=== PATIENT | female | born 1990 | race Caucasian/White ===

== ENCOUNTER 2025-05-13 10:34 | Outpatient (AMB) | payer BC, SELFPAY ==
[2025-05-13 10:36] VITALS: BP 107/60; PULSE 69; BMI 22.8
--- NOTE | 2025-05-13 10:36 | MHC.OFFVIS ---
Vital Signs 05/13/25 10:36 05/13/25 10:50 05/13/25 10:53 Height 5 ft 8 in Weight 149 lb 14.629 oz BMI 22.8 BP 107/60 102/69 109/68 Blood Pressure Location Lt brachial Lt brachial Lt brachial Position Supine Sitting Standing Pulse 69 78 94 Intake Visit Reasons: new patient syncope Intake Note: New patient dx syncope with ekg per patient passed out once a few months ago felt like could pass out 2 other times Allergies No Known Allergies Allergy (Verified 05/13/25 10:41) Medication List - Last Reconciled 05/13/25 by Zack Olguin MD bupropion HCl XL 300 mg PO DAILY sertraline 100 mg PO DAILY HPI Comments Details: Thank you for referring Nayana in cardiology consultation today for management and evaluation of syncope. She is a 35-year-old female who recently had a syncopal episode. She said she had no unusual illnesses prior to this episode and was doing well on that day adequately hydrating and doing her usual routine. She then went for dinner with her and had irregular monitor food. Following that she went to a local club and she is standing and playing game and then suddenly started feeling weird and felt lightheaded. She continued to have symptoms and told her that she is not feeling well and she said down the ground. She continued to not feel well and then she decided to go home and she stood up to pay her tab and then next thing she knows that she had fainted. She said overall total loss of consciousness lasted less than 10 seconds. However she took about 3 minutes to gather all her senses. She had no seizure-like activities as witnessed. She was noted to be pale. No clear diaphoresis although she thinks she might have had cold sweats. She had no chest pain or shortness of breath or fast heart rate. Symptoms resolved and she has not had any recurrent symptoms of syncope since then. She had 2 episodes of near-syncope while at home while sitting down and playing video game. No full loss of consciousness but her at that time also noted that she was pale. She has strong family history in her grandfather, father as well as her aunt of having dysautonomia. She prior to this has not had any diagnose. She is currently on high dose bupropion and sertraline for anxiety/depression. She says she needs this medications. She says she drinks adequate amount of fluids in the day. She denies any exertional chest pain or shortness of breath. No prolonged palpitations. [facility] Medical History Syncope Surgical History Hx of tonsillectomy Family History Father No problems noted. Mother No problems noted. Social History Patient Tobacco Use Status: Never used Tobacco Review of Systems Const Denies chills, Denies daytime sleepiness, Denies fatigue, Denies fever(s), Denies frequent falls, Denies poor appetite, Denies snoring, Denies stops breathing during sleep, Denies weakness, Denies weight gain and Denies weight loss Eyes Denies loss of vision ENT Denies dizziness and Denies hearing loss Card Denies chest pain, Denies claudication, Denies leg edema, Denies lightheadedness, Denies palpitations, Denies dyspnea, Denies dyspnea on exertion and Denies orthopnea Resp Denies cough, Denies excessive phlegm production, Denies dyspnea, Denies dyspnea on exertion, Denies snoring and Denies wheezing GI Denies abdominal pain, Denies hematochezia, Denies change in bowel habits, Denies nausea and Denies vomiting Denies urinary frequency and Denies dysuria Musc Denies arthralgias, Denies muscle weakness, Denies numbness and Denies other (frequent falls) Skin/Breast Denies nail changes and Denies rash Neuro Denies Abnormal speech present, Denies dizziness, Denies frequent falls, Denies loss of vision, Denies memory loss, Denies numbness and Denies weakness Psych Denies depression and Denies memory loss Endo Denies fatigue and Denies palpitations Reginald/Lymph Reports easy bruising and Reports other (anemia) Aller/Immun Denies wheezing Physical Exam Vital Signs: Last Vital Signs Pulse 94 05/13/25 10:53 BP 109/68 05/13/25 10:53 BMI result Body Mass Index 22.8 Const General: cooperative, comfortable, no acute distress, well developed, alert, awake and Physically active Nutritional Appearance: average body habitus Orientation/consciousness: patient oriented x3 Limitations: no limitations HEENT Head: Yes normocephalic and Yes atraumatic Neck Neck: Yes trachea midline, Yes supple and Yes no JVD Resp Effort & Inspection: normal respiratory effort Auscultation: clear to auscultation bilaterally Cardio Jugular venous distension: no JVD Palpation: normal PMI Rate: regular rate Rhythm: regular rhythm Heart sounds: S1 normal heart sound present, S2 normal heart sound present, no click, no gallops and no murmurs GI Auscultation: normal bowel sounds Skin General skin exam: no rashes or lesions noted Neuro General: patient oriented x3 and no focal motor deficits Speech: No Abnormal speech present Extrem General: Yes no clubbing, cyanosis or edema Psych Appearance: grossly normal Office Procedures EKG Details: EKG shows normal sinus rhythm normal EKG [id number], Complete Assessment & Plan Assessment & Plan (1) Syncope: Code(s): R55 - Syncope and collapse Category: Medical Plan: Syncopal episode in this young woman with couple of near syncopal episode with strong family history of dysautonomia. Today on physical exam she does have mi orthostatic tachycardia. She has no symptoms recently. I think she probably also has dysautonomia syndrome potentially worsened by her psychoactive medications which can exacerbate orthostatic symptoms. This was discussed with her. However she says that she needs these medicines. We discussed about mechanism of dysautonomia related syncopal episodes. Would like further workup with a head-up tilt-table test and will repeat a Holter monitor to rule out any arrhythmias although less likely an echocardiogram to evaluate for any structural abnormalities. Discussed with her about the same. We discussed about primary treatment with and asked water and salt intake and mechanism of orthostatic/vasovagal syncope was discussed in details. Further treatment based on the test results. We discussed about orthostatic precautions and advise when she gets these symptoms she has to seek supine or sitting position to avert a syncopal episode and avoid injuries. He understands agrees. We discussed about increasing her aerobic activity mostly supine or sitting exercises. She understands agrees. Will follow up in the clinic in 3 months time, sooner p.r.n.. Thank you for allowing me to partake in her care Orders: Orders ECG 7 day holter monitor Today R55 - Syncope and collapse CA echo transthoracic complete Today R55 - Syncope and collapse ECG Tilt Table Test Today R55 - Syncope and collapse Coding Level of Care Code New Pt Level 4 (70977) Complex EM visit Add On G2211 Diagnoses Syncope R55 CPT Codes EKG - CPT: 56678-[id number], Complete ([id number])
[2025-05-13 10:50] VITALS: BP 102/69; PULSE 78
[2025-05-13 10:53] VITALS: BP 109/68; PULSE 94
== END 2025-05-13 11:18 | disposition home or self-care (01) ==
PROVIDERS: PCP Internal Medicine; Visit Provider Internal Medicine Cardiovascular Disease
DX: R55 Syncope and collapse (principal)
CPT/HCPCS: 93010; 99204

== ENCOUNTER → 2025-05-13 10:34 | Outpatient (BNVA) | payer OTHER, SELFPAY | PROVIDERS: PCP Internal Medicine; Visit Provider Internal Medicine Cardiovascular Disease | DX: R55 Syncope and collapse (principal) | CPT/HCPCS: 93005 ==

== ENCOUNTER → 2025-07-02 12:50 | Outpatient (REF) | payer BC, SELFPAY ==
--- OUTSIDE RECORDS SUMMARY | 2025-07-02 12:53 | XMS_ITS | Clinical Summary ---
Author Organization [facility] Address [address] [place] [address] Phone Care Team Providers Care Regional Transfer Liaison Name Role Phone Teresa Adorno MD Primary Care Provider [phone] Social History Tobacco Use Types Packs/Day Years Used Date Smoking Tobacco: Never Assessed Comments Unknown Sex and Gender Information Value Date Recorded Sex Assigned at Not on file Legal Sex Female 1:15 AM EST Gender Identity Not on file Sexual Orientation Not on file Plan of Treatment Upcoming Encounters Date Type Department Care Team (Late st Contact Info) Description 08/24/2025 1:00 PM EDT Appointment [facility] Xray [address] [place] [address] Health Maintenance Due Date Last Done Comments DTaP,Tdap,and Td Vaccines (1 - Tdap) 2011 Hepatitis B Vaccines (1 of 3 - 19+ 3-dose series) 2011 Cervical Cancer Screening: P ap Smear 2013 COVID-19 Vaccine ( - 2023-2 5 season) 2024 Depression Screening 11/25/2024 HIV Screening 05/18/2025 Hepatitis C Screening 05/18/2025 Social Influencers of Health Screening 05/18/2025 Influenza Vaccine (#1) 2025 HIB Vaccines Aged Out No longer eligi ble based on patient's age to complete this topic HPV Vaccines Aged Out No longer eligi ble based on patient's age to complete this topic Hepatitis A Vaccines Aged Out No long er eligible based on patient's age to complete this topic IPV Vaccines Aged Out No longer eligi ble based on patient's age to complete this topic MMR Vaccines Aged Out No longer eligi ble based on patient's age to complete this topic Meningococcal ACWY Vaccine Aged Out N o longer eligible based on patient's age to complete this topic Meningococcal B Vaccine Aged Out No l onger eligible based on patient's age to complete this topic Pneumococcal Vaccine: Pediat rics (0 to 5 Years) and At-Risk Patients (6 to 49 Years) Aged Out No longer eligible b ased on patient's age to complete this topic RSV Immunization Patients Un bandar 20 months Aged Out No longer eligible b ased on patient's age to complete this topic Varicella Vaccines Aged Out No longer eligible based on patient's age to complete this topic Insurance Care Teams Regional Transfer Liaison Relationship Specialty Start Date End Date Teresa Adorno MD PCP - General Internal Medicine 04/02/18
--- NOTE | 2025-07-02 12:57 | CA_ITS ---
Transthoracic Echocardiogram Patient (Last, First, Middle): Nayana Torrez, Gender: Female Date of : 1990 Age: 35 Procedure Date: 07/02/2025 Procedure Type: Transthoracic Echocardiogram Location: OP Height: 172.72 cm Weight: 74.84 kg BSA: 1.88 m2 Heart Rate: bpm BP: 108 / 70 mmHg Cheese Specialist: TO Referring MD: Zack Olguin MD Symptoms: R55 - Syncope and collapse Study Quality: Adequate ECG Rhythm: Sinus Conclusions: - The left ventricular systolic function is normal. The calculated ejection fraction is 58% by biplane method. - No obvious valvular pathology seen on this study. Findings Left Ventricle Normal left ventricular cavity size. There is normal left ventricular wall thickness. The left ventricular systolic function is normal. The calculated ejection fraction is 58% by biplane method. There is no evidence of regional wall motion abnormalities. Diastolic function is normal for age. LV peak GLS -25.1%. Right Ventricle Normal right ventricular cavity size and systolic function. Atria Both atria are normal in size. Aortic Valve There is a normal trileaflet aortic valve. There is no aortic valve stenosis. There is no aortic valve regurgitation. Mitral Valve The mitral valve appears normal. There is trace mitral valve regurgitation. There is no mitral valve stenosis. Pulmonic Valve The pulmonic valve is likely normal. Tricuspid Valve There is trace tricuspid valve regurgitation. There is no evidence of pulmonary hypertension. Great Vessels The asc aorta is normal in size. Venous The inferior vena cava is normal in size and collapses less than 50% with inspiration. Pericardium/Pleural There is no evidence of pericardial effusion. Prior Study Comparison No prior study available for comparison. Recommendations, Care & Conclusions No obvious valvular pathology seen on this study. Measurements 2D Linear Measurements IVSd: 0.69 0.6-0.9/0.6-1.0 cm LVIDd: 4.53 3.9-5.3/4.2-5.9 cm LVIDd Index: 2.41 2.4-3.2/2.2-3.1 cm/m2 LVIDs: 2.92 2.0-3.6 cm LVPWd: 0.70 0.7-1.1 cm LA Diam: 3.40 2.7-3.8/3.0-4.0 cm LAIDs Index: 1.81 1.5-2.3 cm/m2 LV Mass: 119.10 67-162/88-224 g LV Mass Index: 63.35 43-95/49-115 g/m2 LVOT Diam: 2.20 3.0+(-)1.3 cm 2D Systolic Function EF 4C: 58.90 >55% EF 2C: 58.40 >55% EF BiP: 57.50 >55% Mitral Valve MV Pk E: 0.70 MV PK A: 0.41 MV Decel Time: 219.00 E/A: 1.70 E'Lateral: 14.50 E'Medial: 9.36 E/E' Med: 7.40 E/E' Lat: 4.80 PHT: 64.00 MVA PHT: 3.44 Decel Al[place]gan: 3.18 Aortic Valve AoV Pk Willis: 1.45 AoV Mn Willis: 0.98 AoV VTI: 0.29 AoV Pk Grad: 8.00 Aov Mn Grad: 4.00 NONA Cont.VTI: 3.11 LVOT LVOT Pk Willis: 1.20 LVOT Mn Willis: 0.75 LVOT VTI: 0.23 LVOT Pk Grad: 6.00 LVOT Mn Grad: 3.00 LVOT Diam: 2.20 LVOT Area: 3.80 Diastolic Function MV Pk E: 0.70 MV Pk A: 0.41 E/A: 1.70 E'Medial: 9.36 E/E' Med: 7.40 E' Laterial: 14.50 E/E' Lat: 4.80 Right Ventricle TAPSE (mm): 22.80 TVS' Willis: 12.50 Tricuspid Valve RA Press: 8.00 Great Vessels Aorta Sinus of Valsalva: 3.20 2.0-3.5 cm Ao Asc: 3.00 2.1-3.4 cm Ao Arch: 2.60 Updated in Other Vendor System with Status of Final Tani Foy MD electronically signed on 07/04/2025 1:23:08 PM with status of Final
== END ==
LOC: HO.CARD 12:50
PROVIDERS: PCP Nurse Practitioner Adult Health; Visit Provider Internal Medicine Cardiovascular Disease
DX: R55 Syncope and collapse (principal)
CPT/HCPCS: 93306

== ENCOUNTER → 2025-07-02 12:57 | Outpatient (BNV) | payer BC, SELFPAY | PROVIDERS: PCP Nurse Practitioner Adult Health; Visit Provider Internal Medicine | DX: R55 Syncope and collapse (principal) | CPT/HCPCS: 93306; 93356 ==

== ENCOUNTER → 2025-07-12 14:55 | Outpatient (REF) | payer BC, SELFPAY ==
--- NOTE | 2025-07-12 14:57 | HM_ITS ---
* Total monitoring time 7 days. * Underlying rhythm is sinus with an average rate of 83/Min. * Rare supraventricular ectopy. * Mobitz type one second-degree heart block during sleep hours. * No patient markers or diary events. MTDD
--- OUTSIDE RECORDS SUMMARY | 2025-07-12 15:34 | XMS_ITS | Clinical Summary ---
Author Organization [facility] Address [address] [place] [address] Phone Care Team Providers Care Ordering Box Operator Name Role Phone Stanley Harden MD Primary Care Provider [phone] Herminia Marquez DNP, REHABILITATION WORKER - C Unavailable [phone] Medications levonorgestrel (MIRENA) 20 mcg/24 hr (5 years) intrauterine device Intrauterine Active sertraline (ZOLOFT) 100 MG tablet Take 1 tablet by mouth daily. Active Family History Medical History Relation Comments Other Maternal Grandfather Smoker Other Maternal Grandmother Smoker Endometriosis Mother Breast cancer Paternal Aunt early 40s Alzheimer's disease Paternal Grandmother Relation Status Comments Maternal Grandfather Maternal Grandmother Mother Alive Paternal Aunt Paternal Grandmother Alive Social History Tobacco Use Types Packs/Day Years Used Date Smoking Tobacco: Never Assessed Education Answer Date Recorded Are you interested in more education? Not on sean e 03/22/2023 Are you concerned about learning? Not on file 03/22/2023 No 03/22/2023 No 03/22/2023 Digital Access Answer Date Recorded No 04/19/2023 No 04/19/2023 Reliable internet access at home? Not on file 04/19/2023 Device with a working camera? Not on file Comments Unknown Sex and Gender Information Value Date Recorded Sex Assigned at Not on file Legal Sex Female 8:59 PM EDT Gender Identity Not on file Sexual Orientation Not on file Last Filed Vital Signs Vital Sign Reading Time Taken Comments Blood Pressure 100/64 06/13/2016 8:08 AM EDT Pulse - - Temperature - - Respiratory Rate - - Oxygen Saturation - - Inhaled Oxygen Concentration - - Weight 71 kg (156 lb 9.6 oz) 06/13/2016 8:08 AM EDT Height 167 cm (5' 5.75 ) 06/13/2016 8:08 AM EDT Body Mass Index 25.47 06/13/2016 8:08 AM EDT Plan of Treatment Health Maintenance Due Date Last Done Comments DEPRESSION SCREENING 2004 SMOKING Hx and SMOKELESS TOBACCO SCREENING 2005 HEPATITIS C SCREENING 2010 HIV ONE-TIME SCREENING (18-6 5 YEARS) 2010 PAP SMEAR 04/25/2019 04/25/2016 COVID-19 VACCINE (4 - 2023-2 5 season) 2024 10/07/2021, 03/10/2021, 02/10/2021 Adult Td,Tdap Booster 08/03/2031 08/03/2021 , 03/05/2019 HEPATITIS A VACCINES Aged Out No long er eligible based on patient's age to complete this topic HIB VACCINES Aged Out No longer eligi ble based on patient's age to complete this topic MENINGOCOCCAL VACCINES (ACWY) Aged Out No longer eligible based on patient's age to complete this topic MENINGOCOCCAL VACCINES (B) Aged Out N o longer eligible based on patient's age to complete this topic PNEUMOCOCCAL VACCINES (0-49 years) Aged Out No longer eligible b ased on patient's age to complete this topic Medical Devices Not on file Insurance CIG[employer] CARELINK PPO Ed [place] CIGNA CARELINK PPO CIGNA CARELINK PPO CIGNA CARELINK PPO CIGNA CARELINK PPO CIGNA CARELINK PPO CIGNA CARELINK PPO [employer] CARELINK PPO Care Teams Ordering Box Operator Relationship Specialty Start Date End Date Stanley Harden MD [email or web address] PCP - General 11/28/17 Herminia Marquez, TIMOTEO, REHABILITATION WORKER - C [address] [place] [id number] [email or web address] Insurance Assigned Provider 06/05/25 Additional Source Comments The information contained in this document represents components of the legal health record. It is not the complete legal health record.[facility]
--- OUTSIDE RECORDS SUMMARY | 2025-07-12 15:34 | XMS_ITS | Clinical Summary ---
Author Organization [facility] Address [address] [place] [address] Phone Care Team Providers Care Fabrication Technician Name Role Phone Teresa Adorno MD Primary Care Provider Social History Tobacco Use Types Packs/Day Years [...] Info) Description 08/24/2025 1:00 PM EDT Appointment [facility] Xray [address] [place] [address] Health Maintenance Due Date Last [...] to complete this topic Insurance Care Teams Fabrication Technician Relationship Specialty Start Date End Date Teresa Adorno MD PCP - General Internal Medicine 04/02/18
== END ==
LOC: HO.CARD 14:55
PROVIDERS: PCP Nurse Practitioner Adult Health; Visit Provider Internal Medicine Cardiovascular Disease
DX: R55 Syncope and collapse (principal)
CPT/HCPCS: 93242

== ENCOUNTER → 2025-07-12 14:57 | Outpatient (BNV) | payer BC, SELFPAY | PROVIDERS: PCP Nurse Practitioner Adult Health; Visit Provider Internal Medicine | DX: I44.1 Atrioventricular block, second degree (principal); I47.10 Supraventricular tachycardia, unspecified | CPT/HCPCS: 93244 ==

== ENCOUNTER 2025-09-07 14:50 | Outpatient (AMB) | payer BC, SELFPAY ==
[2025-09-07 14:55] VITALS: BP 118/72; PULSE 66; BMI 24.1
--- NOTE | 2025-09-07 14:55 | MHC.OFFVIS ---
Vital Signs 09/07/25 14:55 Height 5 ft 8 in Weight 158 lb 11.725 oz BMI 24.1 BP 118/72 Blood Pressure Location Lt brachial Position Sitting Pulse 66 Intake Visit Reasons: 3m follow up/echo/holter/tilt Intake Note: 3 month follow-up after echo, holter and tilt table test had some dizziness last week Respiratory Care Specialist Required: No Allergies No Known Allergies Allergy (Verified 05/13/25 10:41) Medication List - Last Reconciled 09/07/25 by Zack Olguin MD bupropion HCl XL 300 mg PO DAILY sertraline 100 mg PO DAILY HPI Comments Details: Nayana comes for follow-up after workup. She underwent an echo and a Holter which were unremarkable with normal structure of the heart and no significant arrhythmias. Tilt-table test was positive for vasovagal syncope after sublingual nitroglycerin. She has been hydrating herself well. Had 1 recent episode while at a [employer] park where she developed symptoms lightheadedness for which she had to lay down. She otherwise has had no syncopal episodes. [facility] Medical History (Updated 09/07/25 @ 15:18 by Zack Olguin MD) Syncope Surgical History Hx of tonsillectomy Family History Father No problems noted. Mother No problems noted. Social History Patient Tobacco Use Status: Never used Tobacco Review of Systems Const Denies chills, Denies fatigue, Denies fever(s), Denies frequent falls, Denies weakness, Denies weight gain and Denies weight loss ENT Denies dizziness Card Denies chest pain, Denies leg edema, Denies lightheadedness, Denies palpitations, Denies dyspnea, Denies dyspnea on exertion, Denies orthopnea and Denies other (loss of consciousness) Resp Denies cough, Denies dyspnea and Denies dyspnea on exertion GI Denies hematochezia and Denies change in stool character Musc Denies abnormal gait, Denies muscle weakness, Denies numbness, Denies radiating pain into limb and Denies tingling Neuro Denies Abnormal speech present, Denies abnormal gait, Denies dizziness, Denies frequent falls, Denies numbness, Denies tingling and Denies weakness Endo Denies fatigue and Denies palpitations Physical Exam Vital Signs: Last Vital Signs Pulse 66 09/07/25 14:55 BP 118/72 09/07/25 14:55 BMI result Body Mass Index 24.1 Const General: cooperative, comfortable, no acute distress, well developed, alert, awake and Physically active Nutritional Appearance: average body habitus Orientation/consciousness: patient oriented x3 Limitations: no limitations HEENT Head: Yes normocephalic and Yes atraumatic Neck Neck: Yes trachea midline, Yes supple and Yes no JVD Resp Effort & Inspection: normal respiratory effort Auscultation: clear to auscultation bilaterally Cardio Jugular venous distension: no JVD Palpation: normal PMI Rate: regular rate Rhythm: regular rhythm Heart sounds: S1 normal heart sound present, S2 normal heart sound present, no click, no gallops and no murmurs GI Auscultation: normal bowel sounds Skin General skin exam: no rashes or lesions noted Neuro General: patient oriented x3 and no focal motor deficits Speech: No Abnormal speech present Extrem General: Yes no clubbing, cyanosis or edema Psych Appearance: grossly normal Assessment & Plan Assessment & Plan (1) Vasovagal syncope: Code(s): R55 - Syncope and collapse Category: Medical Plan: Vasovagal syncope confirmed by tilt-table test with both bradycardic and vasodepressor response to sublingual nitroglycerin. Mechanism of vasovagal syncope was discussed in details with the patient. Discussed treatment of this which includes increase water and salt intake. Advised to seek sitting or supine position if she gets symptomatic. She understands agrees. Overall benign nature of vasovagal syncope was discussed in treatment is mostly focused towards improving intravascular volume. She understands. If she continues to have significant symptoms then we can alter therapy and add additional therapy including fludrocortisone if need be. Will follow up in the clinic in 1 year's time, sooner PRN. Thank you for allowing me to partake in her care Coding Level of Care Code Est Pt Level 3 (36237) Complex EM visit Add On G2211 Diagnoses Vasovagal syncope R55
--- OUTSIDE RECORDS SUMMARY | 2025-09-07 17:44 | XMS_ITS | Clinical Summary ---
Author Organization [facility] Address [address] [place] [address] Phone Care Team Providers Care Game Design Instructor Name Role Phone Gideon Stroud MD Primary Care Provider [phone] Encounters Date Type Department Care Team Description 08/24/2025 12:50 PM EDT - 08/24/2025 11:59 PM EDT Hospital Encounter [facility] Xray [address] [place] [address] Syncope and collapse Discharge Disposition: Home or Self Care from Last 3 Months Social History Tobacco Use Types Packs/Day Years Used Date Smoking Tobacco: Never Assessed Comments Unknown Sex and Gender Information Value Date Recorded Sex Assigned at Not on file Legal Sex Female 1:15 AM EST Gender Identity Not on file Sexual Orientation Not on file Plan of Treatment Health Maintenance Due Date Last Done Comments Pneumococcal Vaccine: Pediatrics (0 to 5 Years) and At-Risk Patients (6 to 49 Years) (2 of 3 - PCV) 10/12/1997 10/12/1996 Cervical Cancer Screening: Pap Smear 2013 Depression Screening 11/25/2024 HIV Screening 05/18/2025 Hepatitis C Screening 05/18/2025 Social Influencers of Health Screening 05/18/2025 COVID-19 Vaccine ( season) 2025 10/07/2021, 03/10/2021, 02/10/2021 Influenza Vaccine (#1) 2025 08/29/2021, 2020 DTaP,Tdap,and Td Vaccines (10 - Td or Tdap) 08/03/2031 08/03/2021, 03/05/2019, 08/08/2018, Additional history exists RSV Immunization Adult Patients (1 - 1-dose 75+ series) 2067 HIB Vaccines Completed 12/20/1993, 02/1993, 1992, Additional history exists Hepatitis B Vaccines Completed 12/20/1993, 1992, 1992, Additional history exists IPV Vaccines Completed 04/09/1997, 11/26, 1992, Additional history exists MMR Vaccines Completed 04/09/1997, 12/20/1993 Varicella Vaccines Aged Out 03/25/1998 No longer eligible based on patient's age to complete this topic HPV Vaccines Completed 03/24/2008, 09/26, 07/31/2007 Hepatitis A Vaccines Aged Out No long er eligible based on patient's age to complete this topic Meningococcal ACWY Vaccine Aged Out N o longer eligible based on patient's age to complete this topic Meningococcal B Vaccine Aged Out No l onger eligible based on patient's age to complete this topic RSV Immunization Patients Under 20 months Aged Out No longer eligible based on patient's age to complete this topic Procedures Procedure Name Priority Date/Time Associated Diagnosis Comments TILT TABLE Routine 08/24/2025 12:52 PM EDT Syncope and collapse from Last 3 Months Results * Tilt table (08/24/2025 12:52 PM EDT) Anatomical Region Laterality Modality Radiographic Jade ging Narrative 08/24/2025 1:58 PM EDT Tilt Table The patient was brought to lab in fasting state. Patient lied supine for 5 minutes for equilibrium. Baseline ECG showed normal sinus rhythm. Baseline supine minimum BP: 118/70 mmHg Baseline supine minimum HR: 65 bpm Patient tilted to 70 degrees. Tilt maintained for 20 minutes. Minimum BP during tilt: 120/67 mmHg Maximum BP during tilt: 137/76 mmHg Minimum heart rate during tilt: 70 bpm Maximum heart rate during tilt: 88 bpm Rhythm during tilt: normal sinus rhythm There was a clear orthostatic response not noted. Patient experienced a physiologic HR increase with tilt. No symptoms reported. Nitroglycerin was given during the test. Tilt maintained under nitroglycerin for 5 minutes. Minimum BP under nitroglycerin: 65/42 Maximum BP under nitroglycerin: 132/68 Minimum HR under nitroglycerin: 83 Maximum HR under nitroglycerin: 129 Rhythm after nitroglycerin administration was junctional. Symptoms seen after the nitroglycerin dose include: dizziness and near syncope. Premonitory symptoms were reproduced. Syncope/presyncope symptoms were reproduced. Patient experienced sudden onset of concomitant bradycardia and hypotension. Conclusion: Abnormal tilt test with findings consistant with dysautonomia. Zack Olguin MD [facility] PROCEDURES F inal Result from Last 3 Months Insurance Care Teams Game Design Instructor Relationship Specialty Start Date End Date Gideon Stroud MD [address] [place] [address] PCP - General Internal Medicine 08/24/25
--- OUTSIDE RECORDS SUMMARY | 2025-09-07 17:44 | XMS_ITS | Clinical Summary ---
Author Organization [facility] Address [address] [place] [address] Phone Care Team Providers Care Concrete Block Mason Name Role Phone Stanley Harden MD Primary Care Provider [phone] Herminia Marquez DNP, PROOFREADER - C Unavailable [phone] Medications levonorgestrel (MIRENA) 20 mcg/24 hr (5 [...] 5 YEARS) 2010 PAP SMEAR 04/25/2019 04/25/2016 INFLUENZA VACCINE (#1) 2025 , 12/26/2020 COVID-19 VACCINE (2024-2 6 season) 2025 10/07/2021, 03/10/2021, 02/10/2021 Adult Td,Tdap Booster 08/03/2031 [...] topic Medical Devices Not on file Insurance [facility] [employer] PPO [employer] PPO [employer] PPO [employer] PPO [employer] PPO [employer] PPO C[employer] [place] [address] [employer] PPO Care Teams Concrete Block Mason Relationship Specialty Start Date End Date Stanley Harden MD PCP - General 11/28/17 Herminia Marquez, TIMOTEO, PROOFREADER - C [address] [place] [address] [email or web address] Insurance Assigned Provider 06/05/25 Additional Source Comments The information contained in this document represents components of the legal health record. It is not the complete legal health record.[facility]
== END 2025-09-07 15:12 | disposition home or self-care (01) ==
LOC: HO.HCS 14:51
PROVIDERS: PCP Internal Medicine; Visit Provider Internal Medicine Cardiovascular Disease
DX: R55 Syncope and collapse (principal)
CPT/HCPCS: 99213